=== PATIENT | female | born 1945 | race Caucasian/White ===

== ENCOUNTER 2018-08-11 15:02 | Emergency (ER) | payer BC, OTHER ==
[~2018-08-11] VITALS: Ht 160 cm; Wt 59.0 kg
--- NOTE | 2018-08-11 15:06 | NUR ---
PT BIB SELF C/O LEFT LOWER LEG PAIN X 1 DAY WITH SWELLING - NO INJURY, PT IS AAOX4, NOT IN RESPIRATORY DISTRESS, KEPT RESTED AND COMFORTABLE. AWAITING ER MD FOR EVAL.
--- NOTE | 2018-08-11 15:27 | NUR ---
SEEN AND EXAMINED BY DR. GONZALEZ.
[2018-08-11] MEDS ORDERED: ONDANSETRON HCL/PF 4 MG/2 ML VIAL IVP ONE (15:30)
[2018-08-11 15:41] LABS: BASOPHILS # (AUTO) 0.1 /CMM (0.0-0.2); BASOPHILS % (AUTO) 0.7 % (0.0-2.0); EOSINOPHILS % (AUTO) 0.7 % (0.0-6.0); HEMATOCRIT 46 % (33-45); HEMOGLOBIN 15.6 g/dL (11.5-14.8); LYMPHOCYTES # (AUTO) 0.9 /CMM (0.8-4.8); LYMPHOCYTES % (AUTO) 8.9 % (20.0-44.0); MEAN CORPUSCULAR HGB CONC 34 g/dl (31.0-36.0); MEAN CORPUSCULAR VOLUME 89 fL (82-100); MONOCYTES # (AUTO) 0.8 /CMM (0.1-1.30); MONOCYTES % (AUTO) 8.1 % (2.0-12.0); NEUTROPHILS % (AUTO) 81.6 % (43.0-81.0); PLATELET COUNT (AUTO) 192 /CMM (150-450); RED BLOOD CELL COUNT(AUTO) 5.19 MIL/uL (4.0-5.2); WHITE BLOOD COUNT (AUTO) 9.9 K/uL (4.3-11.0)
--- NOTE | 2018-08-11 15:45 | NUR ---
LABS DRAWNED AND SENT TO LAB. AWAITING RESULTS.
[2018-08-11 15:54] LABS: CALCIUM, SERUM 9.8 mg/dL (8.5-10.1); CREATININE 1.2 mg/dL (0.6-1.3)
[2018-08-11] MEDS ORDERED: ONDANSETRON HCL/PF 4 MG/2 ML VIAL ONE (15:54)
--- NOTE | 2018-08-11 16:00 | NUR ---
TECH AT BEDSIDE FOR US.
[2018-08-11] MEDS ORDERED: APIXABAN 5 MG TABLET PO SCH (17:00)
[2018-08-11 17:17] VITALS: BP 140/89
--- NOTE | 2018-08-11 17:17 | NUR ---
IV removed. Catheter intact and site benign. Pressure and 4x4 applied to site. No bleeding noted. Patient discharged to home in stable condition. Written and verbal after care instructions given. Patient verbalizes understanding of instruction.
== END 2018-08-11 17:20 | disposition home or self-care (01) ==
LOC: ER 15:05
DX: I82.402 Acute embolism and thrombosis of unspecified deep veins of left lower extremity (principal); Z98.49 Cataract extraction status, unspecified eye; Z88.1 Allergy status to other antibiotic agents; Z96.641 Presence of right artificial hip joint
CPT/HCPCS: 36415; 71045-TC; 80048-TC; 85025-TC; 85730-TC; 93926-TC; 93970-TC; J2405